=== PATIENT | male | born 1960 | race Caucasian/White ===

== ENCOUNTER 2017-05-28 17:06 | Emergency (ER) | payer OTHER ==
[~2017-05-28] VITALS: Ht 190.5 cm; Wt 118.8 kg
[2017-05-28 17:24] VITALS: BP_SYST 144
[2017-05-28] MEDS ORDERED: DIPH-TET-PERTUS Vaccine 0.5 ML VIAL (ADACEL) IM ONE (18:00)
[2017-05-28] MEDS ORDERED: LIDOCAINE 1% 10 MG/ML, 20 ML MDV IJ ONE (18:00)
[2017-05-28] MEDS ORDERED: BACITRACIN 1 GM OINT TP ONE (18:00)
[2017-05-28 18:23] VITALS: BP_SYST 138
== END 2017-05-28 18:23 | disposition home or self-care (01) ==
LOC: SED 17:06
DX: S01.111A Laceration without foreign body of right eyelid and periocular area, initial encounter (principal); W51.XXXA Accidental striking against or bumped into by another person, initial encounter; Y93.89 Activity, other specified; Y92.89 Other specified places as the place of occurrence of the external cause; Y99.8 Other external cause status
CPT/HCPCS: 12013; 90471; 90715; 99283; J2001